=== PATIENT | female | born 1945 | race Caucasian/White ===

== ENCOUNTER → 2017-01-21 | Outpatient (CLI) | payer OTHER | LOC: ECHO 13:24 | DX: R01.1 Cardiac murmur, unspecified (principal); I10 Essential (primary) hypertension | CPT/HCPCS: ECHO; 93306 ==

== ENCOUNTER → 2020-11-28 | Outpatient (CLI) | payer OTHER ==
[~2020-11-28] MED LIST: ADVAIR 250-501 EACH INH; ALPRAZOLAM0.5 MG PO; B-121000 MCG PO; BENZONATATE200 MG PO; BIOTIN2500 MCG PO; COQ-10100 MG PO; DALIRESP 500500 MCG PO; FISH OIL 1,0001 EACH PO; FLAXSEED1000 MG PO; GLUCOPHAGE500 MG PO; IRBESARTAN150 MG PO; MAGNESIUM400 M2 PO; MELATONIN10 M2 PO; SINGULAIR10 MG PO; SPIRIVA RESPIMAT4 GM INH; SYNTHROID100 MCG PO; VENLAFAXINE HCL75 MG PO; VITAMIN D31250 MCG PO; ZOCOR20 MG PO
== END ==
LOC: MAMO 12:12
DX: Z12.31 Encounter for screening mammogram for malignant neoplasm of breast (principal)
CPT/HCPCS: 77063; 77067

== ENCOUNTER → 2021-02-26 | Outpatient (CLI) | payer OTHER | LOC: EXRD 09:49 | DX: M54.5 Low back pain (principal); M51.36 Other intervertebral disc degeneration, lumbar region | CPT/HCPCS: 72110 ==

== ENCOUNTER → 2021-05-15 | Outpatient (CLI) | payer OTHER | LOC: MAMO 09:37 | DX: N64.4 Mastodynia (principal) | CPT/HCPCS: 77065; G0279 ==

== ENCOUNTER → 2021-09-05 | Outpatient (CLI) | payer OTHER ==
[~2021-09-05] MED LIST changes: +AZITHROMYCIN500 MG PO; +CEFDINIR300 MG PO; +MOBIC15 MG PO
== END ==
LOC: KOH-I 10:30
DX: R31.9 Hematuria, unspecified (principal); R10.9 Unspecified abdominal pain
CPT/HCPCS: 74176

== ENCOUNTER 2021-09-12 10:45 | Emergency (ER) | payer OTHER ==
[~2021-09-12 10:45] MED LIST changes: -AZITHROMYCIN500 MG PO; -CEFDINIR300 MG PO; -MOBIC15 MG PO
[2021-09-12 11:38] LABS: HEMOGLOBIN 11.2 gm/dl (12.3-15.3); RED BLOOD COUNT 4.16 M/UL (4.00-5.10); WHITE BLOOD COUNT 12.4 K/UL (4.5-11.0)
[2021-09-12 12:06] LABS: BUN/CREATININE RATIO 22 (0-10)
[2021-09-12] MEDS ORDERED: AZITHROMYCIN500 MG PO (14:43)
[2021-09-12] MEDS ORDERED: MOBIC15 MG PO (14:43)
[2021-09-12] MEDS ORDERED: CEFDINIR300 MG PO (14:43)
== END 2021-09-12 15:26 | disposition left against medical advice (07) ==
LOC: ER1 10:45
DX: R10.31 Right lower quadrant pain (principal); J18.9 Pneumonia, unspecified organism; M54.50 Low back pain, unspecified; M79.604 Pain in right leg; R10.813 Right lower quadrant abdominal tenderness; K52.9 Noninfective gastroenteritis and colitis, unspecified; Z20.822 Contact with and (suspected) exposure to COVID-19; K57.30 Diverticulosis of large intestine without perforation or abscess without bleeding; E11.9 Type 2 diabetes mellitus without complications; I10 Essential (primary) hypertension; Z90.49 Acquired absence of other specified parts of digestive tract
CPT/HCPCS: 80053; 81001; 82550; 82553; 83605; 83690; 83874; 84484; 85007; 85027; 87086; 96374; 99284; J0696; Q9967; U0002

== ENCOUNTER → 2021-09-25 | Outpatient (CLI) | payer OTHER ==
[~2021-09-25] VITALS: Ht 165.1 cm; Wt 74.8 kg
[~2021-09-25] MED LIST changes: +AZITHROMYCIN500 MG PO; +CEFDINIR300 MG PO; +MOBIC15 MG PO
== END ==
LOC: ER1 16:37 → EDSTATUS 17:01 → EROP 17:07
DX: U07.1 COVID-19 (principal)
CPT/HCPCS: 96365

== ENCOUNTER → 2021-10-30 | Outpatient (CLI) | payer OTHER | LOC: RAD 08:13 | DX: M25.571 Pain in right ankle and joints of right foot (principal); M79.671 Pain in right foot; M25.572 Pain in left ankle and joints of left foot; M79.672 Pain in left foot; M25.561 Pain in right knee; M19.072 Primary osteoarthritis, left ankle and foot | CPT/HCPCS: 73564; 73600; 73620 ==

== ENCOUNTER → 2021-12-04 | Outpatient (CLI) | payer OTHER | LOC: MRI 08:35 | DX: M25.561 Pain in right knee (principal); R29.6 Repeated falls; M25.461 Effusion, right knee | CPT/HCPCS: 73721 ==

== ENCOUNTER 2022-05-14 14:49 | Emergency (ER) | payer OTHER ==
[2022-05-14] MEDS ORDERED: HYDROCODON-ACE1 EAC4 PO (17:53)
== END 2022-05-14 18:40 | disposition home or self-care (01) ==
LOC: ER1 14:49
DX: S52.532A Colles' fracture of left radius, initial encounter for closed fracture (principal); E11.9 Type 2 diabetes mellitus without complications; I10 Essential (primary) hypertension; W01.0XXA Fall on same level from slipping, tripping and stumbling without subsequent striking against object, initial encounter
CPT/HCPCS: 73110; 99283

== ENCOUNTER → 2022-05-22 | Day surgery (SDC) | payer OTHER ==
[~2022-05-22] MED LIST changes: +HYDROCODON-ACE1 EAC2 PO; +HYDROCODON-ACE1 EAC4 PO
[2022-05-22 07:23] LABS: RED BLOOD COUNT 3.62 M/UL (4.00-5.10); WHITE BLOOD COUNT 8.7 K/UL (4.5-11.0)
== END | disposition home or self-care (01) ==
LOC: OR 06:04
PROVIDERS: Orthopaedic Surgery
DX: S52.552A Other extraarticular fracture of lower end of left radius, initial encounter for closed fracture (principal); W19.XXXA Unspecified fall, initial encounter; G89.18 Other acute postprocedural pain; I10 Essential (primary) hypertension; E78.5 Hyperlipidemia, unspecified; D64.9 Anemia, unspecified; E11.9 Type 2 diabetes mellitus without complications; E07.9 Disorder of thyroid, unspecified; F41.9 Anxiety disorder, unspecified; F32.A Depression, unspecified; Z79.84 Long term (current) use of oral hypoglycemic drugs; Z79.899 Other long term (current) drug therapy
CPT/HCPCS: 73110; 76000; 80048; 82962; 85025; C1713; J0592; J0690; J1100; J2704; J2795; J3010